=== PATIENT | female | born 1980 | race American Indian/Alaskan Native ===

== ENCOUNTER 2020-03-31 16:51 | Emergency (ER) | payer MEDICARE, MEDICAID ==
--- NOTE | 2020-03-31 17:58 | EDM.PDOC ---
ED HPI GENERAL MEDICAL PROBLEM - General Chief Complaint: Respiratory Problem Stated Complaint: CONGESTED Time Seen by Provider: 03/31/20 17:46 Source of Information: Reports: Patient, RN Notes Reviewed History Limitations: Reports: No Limitations - History of Present Illness INITIAL COMMENTS - FREE TEXT/NARRATIVE: 40-year-old female presents emergency department with a complaint of cough and sputum production she has had for about 24 hours she does produce yellowish sputum she denies any fevers no chills denies any Covid exposure she does use tobacco products - Related Data Allergies Allergy/AdvReac Type Severity Reaction Status Date / Time etanercept [From Enbrel] Allergy Rash Verified 03/17/18 15:40 Home Meds: Home Meds Gabapentin [Neurontin] 300 mg PO ASDIRECTED 03/17/18 [History] Hydrocodone/Acetaminophen [Hydrocodon-Acetaminophen 5-325] 1 tab PO ASDIRECTED 03/17/18 [History] Past Medical History Musculoskeletal History: Reports: RA - Past Surgical History GI Surgical History: Reports: Cholecystectomy Female Surgical History: Reports: Section, Tubal Ligation Social & Family History - Caffeine Use Caffeine Use: Reports: Soda - Recreational Drug Use Recreational Drug Use: No ED ROS GENERAL - Review of Systems Review Of Systems: See Below Constitutional: Reports: No Symptoms Respiratory: Reports: Cough, Sputum Cardiovascular: Reports: No Symptoms ED EXAM, GENERAL - Physical Exam Exam: See Below Exam Limited By: No Limitations General Appearance: Alert, WD/WN, No Apparent Distress Respiratory/Chest: No Respiratory Distress, Lungs Clear, Normal Breath Sounds, No Accessory Muscle Use, Chest Non-Tender Cardiovascular: Regular Rate, Rhythm, No Murmur Course - Vital Signs Last Recorded V/S: Last Vital Signs Temp 96.5 F L 03/31/20 17:19 Pulse 91 03/31/20 17:19 Resp 16 03/31/20 17:19 BP 118/76 03/31/20 17:19 Pulse Ox 100 03/31/20 17:19 Departure - Departure Time of Disposition: 17:57 Disposition: Home, Self-Care 01 Condition: Fair Clinical Impression: Cough - Discharge Information Instructions: Cough, Adult Referrals: Abdoul Salgado PA-C [Primary Care Provider] - Additional Instructions: Please followup with your primary care provider in 3-5 days if not better, please call return to the emergency department with worsening of symptoms. Sepsis Event Note (ED) - Evaluation Sepsis Screening Result: No Definite Risk - Focused Exam Vital Signs: Vital Signs Temp Pulse Resp BP Pulse Ox 03/31/20 17:19 96.5 F L 91 16 118/76 100 03/31/20 17:11 96.5 F L 91 16 118/76 100 - Assessment/Plan Plan: Assessment Acuity = acute Site and laterality = cough with sputum Etiology = unknown Manifestations = none Location of injury = Home Lab values = none Plan I did offer her an evaluation including blood work to test for COVID-19 and chest x-ray but she declined at this time just requires a prescription for Mucinex she will follow-up with her primary care as needed This note was dictated using [employer] voice recognition software please call with any questions on syntax or grammar.
== END 2020-03-31 18:06 | disposition home or self-care (01) ==
LOC: JP.ED 16:51
DX: R05 Cough (principal); Z72.0 Tobacco use; Z88.8 Allergy status to other drugs, medicaments and biological substances; Z90.49 Acquired absence of other specified parts of digestive tract; Z98.51 Tubal ligation status
CPT/HCPCS: 99283

== ENCOUNTER 2020-08-13 17:21 | Emergency (ER) | payer MEDICARE, MEDICAID ==
[2020-08-13] MEDS ORDERED: Sodium Chloride 0.9% 10 ML Syringe FLUSH PRN (18:23)
[2020-08-13] MEDS ORDERED: Ondansetron 4 MG/2 ML SDV IVPUSH ONE (18:23)
[2020-08-13] MEDS ORDERED: Sodium Chloride 0.9% 1,000 ML IV SCH (18:30)
--- NOTE | 2020-08-13 18:30 | EDM.PDOC ---
ED HPI GENERAL MEDICAL PROBLEM - General Chief Complaint: Abdominal Pain Stated Complaint: ABD PAIN Time Seen by Provider: 08/13/20 18:21 Source of Information: Reports: Patient History Limitations: Reports: No Limitations - History of Present Illness INITIAL COMMENTS - FREE TEXT/NARRATIVE: Carolynn is a 40-year-old female with a history of rheumatoid arthritis taking oxycodone on a regular basis who presents with acute onset of nausea, vomiting, and diarrhea started around noon today. Patient has had numerous episodes of bilious emesis, complains of abdominal cramping, and has had 3 episodes of diarrheal stools. She denies of any fever but has had chills. She has had decreased appetite. She has generalized abdominal pain with cramping. She denies any urgency, frequency, or burning with urination. She denies any chest pain or back pain. No one else at home has been ill. Abdomen Pain Score (Numeric/FACES): 10 - Related Data Allergies Allergy/AdvReac Type Severity Reaction Status Date / Time etanercept [From Enbrel] Allergy Rash Verified 03/17/18 15:40 Home Meds: Home Meds Gabapentin [Neurontin] 300 mg PO ASDIRECTED 03/17/18 [History] Hydrocodone/Acetaminophen [Hydrocodon-Acetaminophen 5-325] 1 tab PO ASDIRECTED 03/17/18 [History] Past Medical History Gastrointestinal History: Reports: Other (See Below) Other Gastrointestinal History: abd pain since noon today Musculoskeletal History: Reports: RA - Past Surgical History GI Surgical History: Reports: Cholecystectomy Female Surgical History: Reports: Section, Tubal Ligation Social & Family History - Tobacco Use Tobacco Use Status *Q: Never Tobacco User - Caffeine Use Caffeine Use: Reports: Coffee - Recreational Drug Use Recreational Drug Use: No ED ROS GENERAL - Review of Systems Review Of Systems: See Below Constitutional: Reports: Chills HEENT: Reports: No Symptoms Respiratory: Reports: No Symptoms Cardiovascular: Reports: No Symptoms Endocrine: Reports: No Symptoms GI/Abdominal: Reports: Abdominal Pain, Diarrhea, Nausea, Vomiting : Reports: No Symptoms Musculoskeletal: Reports: No Symptoms Skin: Reports: Lesions (Numerous skin picking lesions) Neurological: Reports: No Symptoms Psychiatric: Reports: No Symptoms Hematologic/Lymphatic: Reports: No Symptoms Immunologic: Reports: No Symptoms ED EXAM, GI/ABD - Physical Exam Exam: See Below Exam Limited By: No Limitations General Appearance: Alert, Anxious, Moderate Distress Eyes: Bilateral: EOMI Nose: Normal Inspection Throat/Mouth: Normal Inspection, Normal Oropharynx, Normal Voice, No Airway Compromise Head: Atraumatic, Normocephalic Neck: Normal Inspection, Supple Respiratory/Chest: No Respiratory Distress, Lungs Clear, Normal Breath Sounds Cardiovascular: Normal Peripheral Pulses, Regular Rate, Rhythm, No Murmur GI/Abdominal Exam: No Distention, Tender (Mild diffuse tenderness ), Abnormal Bowel Sounds (hyperactive bowel sounds). No: Guarding, Rigid, Rebound Back Exam: Normal Inspection Extremities: Normal Inspection Neurological: Alert, Oriented, Normal Cognition, No Motor/Sensory Deficits Psychiatric: Anxious Skin Exam: Warm, Dry Lymphatic: No Adenopathy Course - Vital Signs Last Recorded V/S: Last Vital Signs Temp 36.6 C 08/13/20 17:33 Pulse 67 08/13/20 19:30 Resp 14 08/13/20 19:30 BP 117/63 08/13/20 19:30 Pulse Ox 100 08/13/20 19:30 - Orders/Labs/Meds Orders: Active Orders 24 hr Category Date Time Status Sodium Chloride 0.9% [Normal Saline] 1,000 ml Med 08/13/20 18:30 Active IV ASDIRECTED Sodium Chloride 0.9% [Saline Flush] Med 08/13/20 18:23 Active 10 ml FLUSH ASDIRECTED PRN Saline Lock Insert [OM.PC] Routine Oth 08/13/20 18:23 Ordered Medication Orders Sodium Chloride (Normal Saline) 1,000 mls @ 999 mls/hr IV ASDIRECTED GÓMEZ Last Admin: 08/13/20 18:42 Dose: 999 mls/hr Documented by: SUJATHA Sodium Chloride (Sodium Chloride 0.9% 10 Ml Syringe) 10 ml FLUSH ASDIRECTED PRN PRN Reason: Keep Vein Open Last Admin: 08/13/20 18:41 Dose: 10 ml Documented by: SUJATHA Labs: Laboratory Tests 08/13/20 08/13/20 08/13/20 Range/Units 18:23 18:23 19:46 WBC 13.9 H (4.5-11.0) K/uL RBC 5.52 H (3.30-5.50) M/uL Hgb 16.3 H D (12.0-15.0) g/dL Hct 47.7 (36.0-48.0) % MCV 86 (80-98) fL MCH 30 (27-31) pg MCHC 34 (32-36) % Plt Count 265 (150-400) K/uL Neut % (Auto) 91.1 H (36-66) % Lymph % (Auto) 6.0 L (24-44) % [place] % (Auto) 2.7 (2-6) % Eos % (Auto) 0.1 L (2-4) % Baso % (Auto) 0.1 (0-1) % Sodium 143 (140-148) mmol/L Potassium 3.9 (3.6-5.2) mmol/L Chloride 105 (100-108) mmol/L Carbon Dioxide 24 (21-32) mmol/L Anion Gap 14.1 H (5.0-14.0) mmol/L BUN 11 (7-18) mg/dL Creatinine 0.8 (0.6-1.0) mg/dL Est Cr Clr Drug Dosing 74.51 mL/min Estimated GFR (MDRD) > 60 (>60) Glucose 118 H (74-106) mg/dL Calcium 9.7 D (8.5-10.1) mg/dL Total Bilirubin 0.7 D (0.2-1.0) mg/dL AST 25 D (15-37) U/L ALT 22 (12-78) U/L Alkaline Phosphatase 154 H (46-116) U/L Total Protein 9.1 H (6.4-8.2) g/dL Albumin 4.0 (3.4-5.0) g/dL Globulin 5.1 H (2.3-3.5) g/dL Albumin/Globulin Ratio 0.8 L (1.2-2.2) Lipase 83 (73-393) U/L Urine Color Yellow (YELLOW) Urine Appearance Slightly cloudy A (CLEAR) Urine pH 8.5 H (5.0-8.0) Ur Specific [place] 1.020 (1.008-1.030) Urine Protein 100 H (NEGATIVE) mg/dL Urine Glucose (UA) Negative (NEGATIVE) mg/dL Urine Ketones 15 H (NEGATIVE) mg/dL Urine Occult Blood Trace-intact H (NEGATIVE) Urine Nitrite Negative (NEGATIVE) Urine Bilirubin Small H (NEGATIVE) Urine Urobilinogen 0.2 (0.2-1.0) EU/dL Ur Leukocyte Esterase Negative (NEGATIVE) Urine RBC 0-5 (0-5) Urine WBC 0-5 (0-5) Ur Epithelial Cells Few Amorphous Sediment Not seen Urine Bacteria Few Urine Mucus Many Urine Opiates Screen (NEGATIVE) Ur Oxycodone Screen (NEGATIVE) Urine Methadone Screen (NEGATIVE) Ur Propoxyphene Screen (NEGATIVE) Ur Barbiturates Screen (NEGATIVE) Ur Tricyclics Screen (NEGATIVE) Ur Phencyclidine Scrn (NEGATIVE) Ur Amphetamine Screen (NEGATIVE) U Methamphetamines Scrn (NEGATIVE) Urine MDMA Screen (NEGATIVE) U Benzodiazepines Scrn (NEGATIVE) U Cocaine Metab Screen (NEGATIVE) U Marijuana (THC) Screen (NEGATIVE) 08/13/20 Range/Units 19:46 WBC (4.5-11.0) K/uL RBC (3.30-5.50) M/uL Hgb (12.0-15.0) g/dL Hct (36.0-48.0) % MCV (80-98) fL MCH (27-31) pg MCHC (32-36) % Plt Count (150-400) K/uL Neut % (Auto) (36-66) % Lymph % (Auto) (24-44) % [place] % (Auto) (2-6) % Eos % (Auto) (2-4) % Baso % (Auto) (0-1) % Sodium (140-148) mmol/L Potassium (3.6-5.2) mmol/L Chloride (100-108) mmol/L Carbon Dioxide (21-32) mmol/L Anion Gap (5.0-14.0) mmol/L BUN (7-18) mg/dL Creatinine (0.6-1.0) mg/dL Est Cr Clr Drug Dosing mL/min Estimated GFR (MDRD) (>60) Glucose (74-106) mg/dL Calcium (8.5-10.1) mg/dL Total Bilirubin (0.2-1.0) mg/dL AST (15-37) U/L ALT (12-78) U/L Alkaline Phosphatase (46-116) U/L Total Protein (6.4-8.2) g/dL Albumin (3.4-5.0) g/dL Globulin (2.3-3.5) g/dL Albumin/Globulin Ratio (1.2-2.2) Lipase (73-393) U/L Urine Color (YELLOW) Urine Appearance (CLEAR) Urine pH (5.0-8.0) Ur Specific [place] (1.008-1.030) Urine Protein (NEGATIVE) mg/dL Urine Glucose (UA) (NEGATIVE) mg/dL Urine Ketones (NEGATIVE) mg/dL Urine Occult Blood (NEGATIVE) Urine Nitrite (NEGATIVE) Urine Bilirubin (NEGATIVE) Urine Urobilinogen (0.2-1.0) EU/dL Ur Leukocyte Esterase (NEGATIVE) Urine RBC (0-5) Urine WBC (0-5) Ur Epithelial Cells Amorphous Sediment Urine Bacteria Urine Mucus Urine Opiates Screen Presumptive positive H (NEGATIVE) Ur Oxycodone Screen Negative (NEGATIVE) Urine Methadone Screen Negative (NEGATIVE) Ur Propoxyphene Screen Negative (NEGATIVE) Ur Barbiturates Screen Negative (NEGATIVE) Ur Tricyclics Screen Negative (NEGATIVE) Ur Phencyclidine Scrn Negative (NEGATIVE) Ur Amphetamine Screen Negative (NEGATIVE) U Methamphetamines Scrn Negative (NEGATIVE) Urine MDMA Screen Negative (NEGATIVE) U Benzodiazepines Scrn Negative (NEGATIVE) U Cocaine Metab Screen Negative (NEGATIVE) U Marijuana (THC) Screen Presumptive positive H (NEGATIVE) Meds: Medications Generic Name Dose Route Start Last Admin Trade Name Freq PRN Reason Stop Dose Admin Sodium Chloride 1,000 mls @ 999 mls/hr 08/13/20 18:30 08/13/20 18:42 Normal Saline IV 999 mls/hr ASDIRECTED GÓMEZ Administration Sodium Chloride 10 ml 08/13/20 18:23 08/13/20 18:41 Sodium Chloride 0.9% 10 Ml Syringe FLUSH 10 ml ASDIRECTED PRN Administration Keep Vein Open Discontinued Medications Generic Name Dose Route Start Last Admin Trade Name Freq PRN Reason Stop Dose Admin Hydrocodone Bitart/Acetaminophen 1 tab 08/13/20 20:03 08/13/20 20:30 Acetaminophen/Hydrocodone 325-5 Mg Tab PO 08/13/20 20:04 1 tab ONETIME ONE Administration Ketorolac Tromethamine 30 mg 08/13/20 18:44 08/13/20 18:47 Ketorolac 30 Mg/Ml Sdv IVPUSH 08/13/20 18:45 30 mg ONETIME ONE Administration Ondansetron HCl 4 mg 08/13/20 18:23 08/13/20 18:40 Ondansetron 4 Mg/2 Ml Sdv IVPUSH 08/13/20 18:24 4 mg ONETIME ONE Administration - Re-Assessments/Exams Free Text/Narrative Re-Assessment/Exam: 08/13/20 19:23 I reviewed the patient's labs showing leukocyte count of 13.9 with a hemoglobin of 16.8. She does appear to be volume contracted with elevated hemoglobin at 16.8. Her BUN is only 11 with a creatinine of 0.8. Her transaminases are normal. Her calcium is 9.7 but corrects to normal when compared to her albumin of 4.0. 08/13/20 21:15 urinalysis and urine drug screen are unremarkable for infection but the patient is positive for opiates which she takes hydrocodone chronically and marijuana. Work-up is consistent with an acute viral gastroenteritis. We will send her home with an oral prescription for Zofran ODT for control of her nausea and vomiting. She is instructed to push fluids frequently in small aliquots to prevent further dehydration. At this time she is suitable for discharge home in satisfactory condition. Indications return to the ED were discussed. Departure - Departure Time of Disposition: 21:12 Disposition: Home, Self-Care 01 Clinical Impression: Viral gastroenteritis due to Lowman-like agent - Discharge Information Referrals: PCP,None [Primary Care Provider] - Forms: ED Department Discharge Care Plan Goals: Your work-up shows that you have a viral stomach flu called gastroenteritis likely due to Lowman virus. This causes nausea, vomiting, and diarrhea. As it is a virus it does not respond to antibiotics so they are not warranted. We are sending you home with a prescription for Zofran to control your nausea and vomiting. I recommend that you take small amounts of fluids frequently to stay hydrated. Your one-to-one to follow a very bland diet like a BRAT diet which is bananas, rice, applesauce and toast. This can last up to 1 to 2 weeks and is highly contagious to make sure you wash her hands after using the bathroom. You can reinfect yourself with this as well. Return to the ED should you develop significant dizziness, shortness of breath, chest pain or back pain. Sepsis Event Note (ED) - Evaluation Sepsis Screening Result: No Definite Risk - Focused Exam Vital Signs: Vital Signs Temp Pulse Resp BP Pulse Ox 08/13/20 19:30 67 14 117/63 100 08/13/20 17:33 36.6 C 86 22 H 129/97 H - Problem List & Annotations (1) Viral gastroenteritis due to Lowman-like agent Status: Acute Priority: High Current Visit: Yes - Problem List Review Problem List Initiated/Reviewed/Updated: Yes - My Orders Last 24 Hours: My Active Orders 08/13/20 18:23 Sodium Chloride 0.9% [Saline Flush] 10 ml FLUSH ASDIRECTED PRN Saline Lock Insert [OM.PC] Routine 08/13/20 18:30 Sodium Chloride 0.9% [Normal Saline] 1,000 ml IV ASDIRECTED - Assessment/Plan Last 24 Hours: My Active Orders 08/13/20 18:23 Sodium Chloride 0.9% [Saline Flush] 10 ml FLUSH ASDIRECTED PRN Saline Lock Insert [OM.PC] Routine 08/13/20 18:30 Sodium Chloride 0.9% [Normal Saline] 1,000 ml IV ASDIRECTED
[2020-08-13] MEDS ORDERED: Ketorolac 30 MG/ML SDV IVPUSH ONE (18:44)
[2020-08-13] MEDS ORDERED: Acetaminophen/HYDROcodone 325-5 MG Tab PO ONE (20:03)
== END 2020-08-13 21:30 | disposition home or self-care (01) ==
LOC: JP.ED 17:21
DX: A08.4 Viral intestinal infection, unspecified (principal); Z88.8 Allergy status to other drugs, medicaments and biological substances
CPT/HCPCS: 36415; 80053; 80305; 81001; 83690; 85025; 96374; 96375; 99283; 99284; A9270; J1885; J2405; J7030